=== PATIENT | male | born 1935 | race Caucasian/White ===

== ENCOUNTER 2025-08-15 14:23 | Outpatient (CLI) | payer MEDICARE ==
[2025-08-15 16:38] LABS: Estimated GFR - POC 41.0
== END 2025-08-15 14:24 | disposition home or self-care (01) ==
LOC: CSHCT 14:23
PROVIDERS: ATTEND Internal Medicine Hematology & Oncology
DX: C85.89 Other specified types of non-Hodgkin lymphoma, extranodal and solid organ sites (principal); C85.80 Other specified types of non-Hodgkin lymphoma, unspecified site; D50.0 Iron deficiency anemia secondary to blood loss (chronic); I51.7 Cardiomegaly; I25.10 Atherosclerotic heart disease of native coronary artery without angina pectoris; I25.84 Coronary atherosclerosis due to calcified coronary lesion
CPT/HCPCS: 36415; 74177; 82565